=== PATIENT | female | born 1990 | race Two or more races ===

== ENCOUNTER 2025-03-13 10:48 | Day surgery (SDC) | payer BC ==
[2025-03-10 12:33] LABS: Hematocrit 36.6 % (36.0-46.0); Hemoglobin 11.9 g/dL (12.2-16.2); Mean Corpuscular Hemoglobin 27.8 pg (28.0-32.0); Mean Corpuscular Volume 85.2 fL (80.0-100.0); Nucleated Red Blood Cells % 0.0 %
[2025-03-10 12:46] LABS: INR 0.97 (0.9-1.15); Partial Thromboplastin Time 27.3 SEC (24.5-34.5); Prothrombin Time 10.3 sec (9.3-11.8)
[2025-03-10 13:01] LABS: Alanine Aminotransferase 14 U/L (7-40); Albumin 4.4 g/dL (3.2-4.8); Alkaline Phosphatase 80 U/L (46-116); Anion Gap 8 (5-15); BUN/Creatinine Ratio 13.2 (10.0-20.0); Blood Urea Nitrogen 10 mg/dL (9-23); Calcium 9.1 mg/dL (8.7-10.4); Carbon Dioxide 29 mmol/L (20-31); Chloride 106 mmol/L (98-107); Glucose 84 mg/dL (74-106); Potassium 3.7 mmol/L (3.5-5.1); Sodium 143 mmol/L (136-145); Total Protein 7.7 g/dL (5.7-8.2)
[2025-03-10 13:03] LABS: Bilirubin, Total 1.2 mg/dL (0.2-1.0)
[~2025-03-13] VITALS: Ht 160 cm; Wt 99.8 kg
[~2025-03-13 10:48] MED LIST: PANT40TA2 PO; SIME80CH49 PO; ZOFR4T PO
[2025-03-13] MEDS: LIDOCAINE VISCOUS 2% 15ML UD ONE (12:10)
[2025-03-13] MEDS ORDERED: MEPERIDINE HCL (25 MG/ML) 1ML VIAL ONE (12:11)
[2025-03-13] MEDS ORDERED: fentaNYL CITRATE 100 MCG/2 ML VL ONE (12:12)
[2025-03-13] MEDS ORDERED: MIDAZOLAM HCL 2MG/2ML 2ml VIAL (1mg/ml) ONE (12:12)
[2025-03-13] MEDS ORDERED: PROPOFOL 10 MG/ML 20 ML IV ONE (12:25)
--- NOTE | 2025-03-13 12:34 | DVHHP2 ---
GI H&P Pre-Op Assessment Date: 03/13/25 Chief complaint: Epigastric pain, nausea, vomiting, lower abdominal pain, melena and blood in stool HPI: per clinic note Past medical history: per clinic note Past surgical history: per clinic note Family history: per clinic note Physical exam: General: NAD, AAOX3 HEENT: PERRL, no scleral icterus, normal hearing, gums without lesions or bleeding, oropharynx clear without erythema or exudate. Neck: Supple without enlargement of the thyroid, or lymphadenopathy. Chest: Normal size and shape, no tenderness, lung hudson clear to auscultation and percussion, nonlabored breathing. Heart: RRR, no murmur Abdomen: non-distended, no tenderness to palpation, +BS, no hepatosplenomegaly Extremities: no edema Neurological: CN II-XII intact, sensation intact in all extremities, 5+ strength in all extremities Skin: No rashes, No jaundice Assessment: - Epigastric pain, nausea, vomiting, lower abdominal pain, melena and blood in stool Plan: - EGD - Colonoscopy - Risks (bleeding, infection, perforation, reaction to sedation medications and cardiopulmonary arrest) and benefit of the procedure were explained to patient. Patient agrees to undergo the procedure. DIEGO NINO MD Mar 13, 2025 12:34
--- NOTE | 2025-03-13 12:35 | DVHOP2 ---
Operative Report DATE OF OPERATION: 03/13/25 PROCEDURE: Upper Endoscopy. PREOPERATIVE INDICATION: The patient is a 34 -year-old female undergoing endoscopy for epigastric pain, nausea, vomiting, melena. POSTOPERATIVE DIAGNOSES: 1. Mild gastritis PROCEDURE PERFORMED BY: Rhett Brown SCOPE: Olympus videoendoscope. ASA CLASS: 3 PREOPERATIVE MEDICATIONS: MAC with Dr Peralta PROCEDURE IN DETAIL: After obtaining an informed consent, the patient was placed on her back. The patient was then sedated y Dr peralta. A bite block was placed between her teeth. The endoscope was then passed through the oropharynx, into the esophagus, and through the stomach and pylorus up to the second and third part of the duodenum. The duodenum was normal in appearance. There was mild gastritis. Gastric biopsies were obtained using cold forceps. The esophagus was normal in appearance. The endoscope was then withdrawn. The patient tolerated the procedure well without difficulty. COMPLICATIONS : None SPECIMENS: Gastric biopsies DISPOSITION: D/C to home PLAN: 1. Await for biopsy result 2. Continue with Protonix. RHETT BROWN MD Mar 13, 2025 12:35
--- NOTE | 2025-03-13 12:37 | DVHOP2 ---
Operative Report DATE OF OPERATION: 03/13/25 PROCEDURE: Colonoscopy. PREOPERATIVE INDICATION: The patient is a 34 -year-old female undergoing colonoscopy for lower abdominal pain and blood in stool. POSTOPERATIVE DIAGNOSES: 1. Internal hemorrhoids 2. Normal colonic mucosa PROCEDURE PERFORMED BY: Rhett Brown M.D. SCOPE: Olympus videocolonoscope. ASA CLASS: 3 PREOPERATIVE MEDICATIONS: MAC with Dr Gabriel PROCEDURE IN DETAIL: After obtaining an informed consent, the patient was placed on left lateral decubitus position. She was then sedated by Dr Gabriel. A rectal examination was performed that was normal. The colonoscope was then passed through the anus into the rectosigmoid and through the descending, transv erse, and ascending colon up to the cecum with visualization of the appendiceal orifice, base of the cecum and the ileocecal valve. No mass or polyp was observed. The colonic mucosa was normal in appearance. There were internal hemorrhoids. The colonoscope was then withdrawn. The patient tolerated the procedure well without difficulty. WITHDRAWAL TIME: 6 minutes QUALITY OF THE PREP: Comins Bowel Prep score: 6 COMPLICATIONS : None SPECIMENS: None DISPOSITION: D/C to home PLAN: 1. Repeat colonoscopy in 10 years for colon cancer screening RHETT BROWN MD Mar 13, 2025 12:37
--- NOTE | 2025-03-13 12:38 | DVHDS2 ---
Physician Discharge Progress N Final Diagnosis: Mild gastritis Internal hemorrhoids Operations or Procedures: Operations or Procedures EGD with cold biopsy Colonoscopy Condition on Discharge: Good Disposition: Home Discharge Instructions: Diet: Regular Activity: No Restrictions, As Tolerated Medications: Resume previous home medications Follow Up Care: Discharge Statement: "Patient was advised to return to the ER or call 911 if any headaches, dizziness, shortness of breath, chest pain, abdominal pain, bleeding, fevers, or worsening of medical condition. Patient was counseled about treatment plan, medications, possible side effects, patientverbalized understanding. All questions were answered to the best of my ability. This discharge took greater then 30 minutes in planning, reviewing documentation, counseling the patient, and discussing with other team members." DIEGO NINO MD Mar 13, 2025 12:38
[2025-03-13 12:40] VITALS: PULSE 67; RESP 14; TEMP 97.1
[2025-03-13 12:55] VITALS: BP 117/72; PULSE 73; RESP 17; O2SAT 100
[2025-03-13 13:15] VITALS: RESP 17
== END 2025-03-13 13:15 | disposition home or self-care (01) ==
LOC: GI 10:48
PROVIDERS: ATTEND Internal Medicine Gastroenterology
DX: K92.1 Melena (principal); K64.8 Other hemorrhoids; K29.50 Unspecified chronic gastritis without bleeding; R11.2 Nausea with vomiting, unspecified; R10.30 Lower abdominal pain, unspecified; R10.13 Epigastric pain; E66.9 Obesity, unspecified; Z68.31 Body mass index [BMI] 31.0-31.9, adult; Z79.899 Other long term (current) drug therapy; Z90.49 Acquired absence of other specified parts of digestive tract; Z90.89 Acquired absence of other organs; Z98.890 Other specified postprocedural states; Z91.040 Latex allergy status
CPT/HCPCS: 36415; 43239; 45378; 80053; 85025; 85610; 85730; 88305; 88342; J1100; J2175; J2250; J2704; J3010